=== PATIENT | female | born 1945 | race Caucasian/White ===

== ENCOUNTER 2018-06-03 06:37 | Emergency (ER) | payer MEDICARE ==
[~2018-06-03] VITALS: Ht 167.6 cm; Wt 78.0 kg
[~2018-06-03 06:37] MED LIST: ATEN50TA PO; CITA20TA6 PO; METF500T5 PO; OMEP20CA9 PO
[2018-06-03] MEDS: ACETAMINOPHEN 500 MG TABLET PO ONE (07:13)
--- NOTE | 2018-06-03 07:41 | RAD ---
Left shoulder, 3 views, 06/03/2018: HISTORY: Pain after a fall There is a slightly impacted fracture of the humeral neck with a fracture line extending into the greater tuberosity. No significant displacement is evident. There is no evidence of dislocation. IMPRESSION: Nondisplaced fracture of the proximal left humerus. Electronically signed by: Dougie Bhatia MD (06/03/2018 7:38 AM) [facility]
[2018-06-03] MEDS ORDERED: HYDR-971 PO (07:45)
--- NOTE | 2018-06-03 07:52 | PHYS DOC ---
Past Medical History Past Medical History: Diabetes-Type II, GERD, Hypothyroid, Hypotension, Hepatitis, Other Additional Past Medical Histor: Hep C, Cirrhosis Past Surgical History: Other Additional Past Surgical Histo: left ankle Alcohol Use: None Drug Use: None Adult General Chief Complaint Chief Complaint: MECHANICAL FALL HPI HPI Patient is a 73 year old female presenting with mechanical fall she tripped on a railroad tie on the way to work. she has left shoulder pain. Tetanus is up-to- date no head injury no neck pain no loss of consciousness. Review of Systems Review of Systems pos knee laurent no pelon pain Current Medications Current Medications Current Medications Medications (Trade) Dose Ordered Sig/Justine Start Time Stop Time Status Last Admin Dose Admin Acetaminophen (Tylenol) 1,000 mg 1X ONCE 06/03/18 07:00 06/03/18 07:03 DC 06/03/18 07:13 1,000 MG Allergies Allergies Allergies Coded Allergies Type Severity Reaction Last Updated Verified No Known Drug Allergies 10/31/13 No Physical Exam Physical Exam Constitutional: Well developed, well nourished, no acute distress, non-toxic appearance. [] HENT: Normocephalic, atraumatic, bilateral external ears normal, oropharynx moist, no oral exudates, nose normal. [] Eyes: PERRLA, EOMI, conjunctiva normal, no discharge. [] Neck: Normal range of motion, no tenderness, supple, no stridor. [] Pulmonary: Normal respiratory effort no increased work of breathing no obvious chest wall trauma Abdomen soft and nontender Back: No tenderness, no CVA tenderness. [] Extremities: Limited range of motion and abrasion to the left shoulder distal sensation and motor function and pulse are intact abrasion to the left knee range of motion is full Neurologic: Alert and oriented X 3, normal motor function, normal sensory function, no focal deficits noted. [] Psychologic: Affect normal, judgement normal, mood normal. [] Current Patient Data Vital Signs Vital Signs Date Time Temp Pulse Resp B/P (MAP) Pulse Ox O2 Delivery O2 Flow Rate FiO2 06/03/18 06:41 97.6 94 18 99/51 (67) 94 Room Air 97.6 EKG EKG [] Radiology/Procedures Radiology/Procedures [] Course & Med Decision Making Course & Med Decision Making Pertinent Labs and Imaging studies reviewed. (See chart for details) []Humeral head fracture no dislocation patient is overall well-appearing appears to be an isolated injury she lives alone but she is highly functional she is working she was given a sling and orthopedics follow-up as well as pain medication. She was advised on care of the shoulder work note was given instructions were reviewed and she voiced understanding. Dragon Disclaimer Dragon Disclaimer This electronic medical record was generated, in whole or in part, using a voice recognition dictation system. Departure Departure Impression: Primary Impression: Humeral head fracture Disposition: HOME, SELF-CARE Condition: IMPROVED Referrals: JAY CHAND MD Patient Instructions: Humerus Fracture, Treated with Immobilization Scripts Hydrocodone/Apap 5-325 (NORCO 5-325 TABLET) 1 Each Tablet 1-2 EACH PO PRN Q6HRS PRN for PAIN, #15 as needed for pain Prov: DARLYN OLIVER MD 06/03/18 DARLYN OLIVER MD Jun 03, 2018 07:52
[2018-06-03 08:00] VITALS: BP 102/53
== END 2018-06-03 08:05 | disposition home or self-care (01) ==
LOC: ER 06:37
DX: M25.512 Pain in left shoulder (principal); K21.9 Gastro-esophageal reflux disease without esophagitis; E03.9 Hypothyroidism, unspecified; E11.9 Type 2 diabetes mellitus without complications; W01.0XXA Fall on same level from slipping, tripping and stumbling without subsequent striking against object, initial encounter; Y99.0 Civilian activity done for income or pay; Y92.85 Railroad track as the place of occurrence of the external cause; Y93.01 Activity, walking, marching and hiking
CPT/HCPCS: 73030; 99284

== ENCOUNTER → 2020-03-17 | Outpatient (CLI) | payer MEDICARE ==
[~2020-03-17] MED LIST changes: +HYDR-3164 PO; +METF500T16 PO; -METF500T5 PO; +OMEP20CA16 PO; -OMEP20CA9 PO
--- NOTE | 2020-03-17 10:45 | CARD ---
MR#: [id number] Date of Study: 03/17/2020 Ordering Physician: PHIL NUNEZ, Referring Physician: PHIL NUNEZ, Tech: Gina Huff [facility] APPROVED REPORT EXAM: Two-dimensional and M-mode echocardiogram with Doppler and color Doppler. Other Information Quality : Good INDICATION Supraventricular Tachycardia 2D DIMENSIONS Left Atrium(2D)3.9 (1.6-4.0cm)IVSd1.2 (0.7-1.1cm) Aortic Root(2D)3.1 (2.0-3.7cm)LVDd5.5 (3.9-5.9cm) LVOT Diameter2.2 (1.8-2.4cm)PWd1.2 (0.7-1.1cm) LVDs3.4 (2.5-4.0cm)FS (%) 38.6 % SV99.4 ml Aortic Valve AoV Peak Steve.209.4cm/sAoV VTI50.2cm AO Peak GR.17.5mmHgLVOT Peak Steve.115.5cm/s AO Mean GR.8mmHgAVA (VMAX)2.01cm2 MICHELE (VTI)2.20xb6SX P 1/2 Kbhx378ey Mitral Valve MV E Xagamtvx19.3cm/sMV DECEL LICG129wp MV A Arjtphoo18.6cm/sE/A Ratio0.9 Pulmonary Vein S1 Uwiqwtqa71.7cm/sD2 Ziqphxoe20.6cm/s LEFT VENTRICLE The left ventricle is normal size. There is mild concentric left ventricular hypertrophy. The left ve ntricular systolic function is normal and the ejection fraction is within normal range. The Ejection Fraction is 55-60%. There is normal LV segmental wall motion. Transmitral Doppler flow pattern is Gra de I-abnormal relaxation pattern. RIGHT VENTRICLE The right ventricle is normal size. The right ventricular systolic function is normal. ATRIA The left atrium size is normal. The right atrium size is normal. The interatrial septum is intact wit h no evidence for an atrial septal defect or patent foramen ovale as noted on 2-D or Doppler imaging. AORTIC VALVE The aortic valve is normal in structure and function. Doppler and Color Flow revealed trace aortic re gurgitation. There is no significant aortic valvular stenosis. MITRAL VALVE The mitral valve is calcified but opens well. Mitral annular calcification is mild. There is no evide nce of mitral valve prolapse. There is no mitral valve stenosis. Doppler and Color-flow revealed trac e mitral regurgitation. TRICUSPID VALVE The tricuspid valve is normal in structure and function. Doppler and Color Flow revealed no tricuspid valve regurgitation noted. There is no tricuspid valve stenosis. PULMONIC VALVE The pulmonary valve is normal in structure and function. Doppler and Color Flow revealed no pulmonic valvular regurgitation. There is no pulmonic valvular stenosis. GREAT VESSELS The aortic root is normal in size. The ascending aorta is normal in size. The IVC is normal in size a nd collapses >50% with inspiration. PERICARDIAL EFFUSION There is no evidence of significant pericardial effusion. Critical Notification Critical Value: No <Conclusion> The left ventricle is normal size. The left ventricular systolic function is normal and the ejection fraction is within normal range. The Ejection Fraction is 55-60%. There is mild concentric left ventricular hypertrophy. Doppler and Color Flow revealed trace aortic regurgitation. There is no significant aortic valvular stenosis. Doppler and Color-flow revealed trace mitral regurgitation. Doppler and Color Flow revealed no tricuspid valve regurgitation noted. Signed by : Alden Pond MD Electronically Approved : 03/17/2020 10:45:12
== END | disposition home or self-care (01) ==
LOC: ECHO 09:48
PROVIDERS: ATTEND Internal Medicine Cardiovascular Disease
DX: I05.8 Other rheumatic mitral valve diseases (principal); I47.1 Supraventricular tachycardia
CPT/HCPCS: 93306

== ENCOUNTER → 2020-03-22 | Outpatient (CLI) | payer MEDICARE ==
[~2020-03-22] MED LIST changes: +ASCO500C PO; +ATOR10TA60 PO; +CALC1CAP7 PO; +GABA300C18 PO; +GABA600T7 PO; +HYDR12.575 PO; +LEVO50TA5 PO; +MAGN250T10 PO; +METF850T8 PO; +VENTOLIN HFA18 GM INH; +[UNRECOGNIZED DRUG - REMARK]; +vitamin d
== END | disposition home or self-care (01) ==
LOC: LAB 12:30
PROVIDERS: ATTEND Internal Medicine Gastroenterology
DX: Z11.59 Encounter for screening for other viral diseases (principal)
CPT/HCPCS: U0003-CS

== ENCOUNTER → 2020-03-27 | Day surgery (SDC) | payer MEDICARE ==
[~2020-03-27] MED LIST changes: +IV RINGERS,LACTATED 1000ML 1,000 ML IV SCH; +PROPOFOL 10 MG/ML (20ML) VIAL. IV ONE
[2020-03-27 10:08] VITALS: BP 101/40
--- NOTE | 2020-03-27 10:11 | PREOP HP ---
DATE OF SERVICE: 03/27/2020 DATE OF PROCEDURE: 03/27/2020. REQUESTING PHYSICIAN: Raleigh Roman DO PRIMARY CARE PHYSICIAN: Raleigh Roman DO REASON FOR PROCEDURE: Esophageal variceal screening and colorectal cancer screening. HISTORY OF PRESENT ILLNESS: This is a 74-year-old female who presents for esophageal variceal screening and colorectal cancer screening. She has a positive Cologuard. ALLERGIES: MORPHINE. MEDICATIONS: MAR reviewed. PAST MEDICAL HISTORY: 1. Hepatitis C. 2. Liver disease. FAMILY MEDICAL HISTORY: No colorectal cancer. REVIEW OF SYSTEMS: A 13-point review of systems was done and is positive as per HPI and otherwise negative. PHYSICAL EXAMINATION: VITAL SIGNS: She is afebrile. Her vital signs are stable. GENERAL: She is a well-developed, well-nourished female, in no apparent distress. HEENT: Oropharynx is clear. CARDIOVASCULAR: S1, S2. LUNGS: Clear. ABDOMEN: Normoactive bowel sounds. Soft, nontender, nondistended. EXTREMITIES: No edema. NEUROLOGIC: Awake, alert and oriented x 3. ASSESSMENT AND PLAN: 1. Colorectal cancer screening. 2. Esophageal variceal screening. PLAN: We will proceed with upper endoscopy and colonoscopy. The risks and benefits including bleeding, perforation, non-diagnosis and sedation were explained and she has agreed to proceed. RASHAWN GIBSON MD DR: JOSIAS/renard JOB#: [id number] / [id number]
--- NOTE | 2020-03-28 15:07 | PATHOLOGY ---
[facility] Accession Number: [id number] . 01 Material submitted: . PART A: small bowel - SMALL BOWEL BIOPSY PART B: stomach - BIOPSY GASTRIC ANTRUM AND BODY. Modifiers: body PART C: colon - BIOPSY POLYPS TRANVERSE COLON POLYPS. Modifiers: transverse PART D: colon - BIOPSY DESCENDING COLON POLYP. Modifiers: descending PART E: colon - BIOPSY SIGMOID POLYP. Modifiers: sigmoid . 01 Clinical history: . Esophageal varices, CRC . 02 Diagnosis: A. Small bowel biopsies: - No significant pathologic abnormalities. . B. Gastric biopsies, gastric body and gastric antrum: - Chronic gastritis, mild. . C. Colon biopsies, transverse colon polyps: - Tubular adenomas. . D. Colon biopsies, descending colon polyps: - Tubular adenomas. . E. Colon biopsies, sigmoid colon polyp: - Tubular adenoma. (JPM:baudilio 03/28/2020) [facility] 03/28/2020 0911 Local . 02 Comment: Sections of the small bowel biopsy reveal segments of duodenal and small intestine mucosa. Where best oriented, the mucosal villi show no sprue-like changes or significant inflammatory changes. . Sections of the gastric biopsy reveal segments of gastric body and gastric antral mucosa. The gastric body mucosa shows superficial congestion and mild chronic inflammation. The gastric antral mucosa shows congestion and mild chronic inflammation. A properly controlled immunoperoxidase stain for Helicobacter is negative for Helicobacter organisms. . Sections of the transverse colon biopsy reveal two tubular adenomas showing no high-grade dysplasia or evidence of malignancy. . Sections of the descending colon biopsy reveal two tubular adenomas showing no high-grade dysplasia or evidence of malignancy. . Sections of the sigmoid colon biopsy reveal a tubular adenoma showing no high-grade dysplasia or evidence of malignancy. (JPM:baudilio 03/28/2020) . Special stain performed: Immunoperoxidase for Helicobacter on B1. . 02 Electronically signed: . Bautista Perez MD, Pathologist NPI- [id number] . 01 Gross description: . A. The specimen is received in formalin, labeled "Bettina Hector, small bowel biopsy". Received are four segments of pale lay soft tissue ranging in size from 0.3 to 0.4 cm in maximum dimensions. The specimen is submitted entirely in cassette A1. . B. The specimen is received in formalin, labeled "Bettina Hector, biopsy gastric antrum and body". Received are five segments of pale lay soft tissue ranging in size from 0.2 to 0.4 cm in maximum dimensions. The specimen is submitted entirely in cassette B1. . C. The specimen is received in formalin, labeled "Bettina Hector, biopsy polyps transverse colon polyps". Received are two segments of pale lay soft tissue ranging in size from 0.3 to 0.4 cm in maximum dimensions. The specimen is submitted entirely in cassette C1. . D. The specimen is received in formalin, labeled "Bettina Hector, biopsy descending colon polyp". Received is a segment of pale lay soft tissue measuring 0.5 cm in maximum dimensions. The specimen is submitted entirely in cassette D1. . E. The specimen is received in formalin, labeled "Bettina Hector, biopsy sigmoid polyp". Received are two segments of pale lay soft tissue ranging in size from 0.2 to 0.5 cm in maximum dimensions. The specimen is submitted entirely in cassette E1. (CAA; 03/27/2020) QA/QA 03/27/2020 1718 Local . 02 Pathologist provided ICD-10: K29.50, D12.3, D12.4, D12.5 . 02 CPT . 771057, 689986, 883204, [id number], 181675, [id number] Specimen Comment: A courtesy copy of this report has been sent to [phone], [phone] Specimen Comment: [id number] Specimen Comment: Report sent to / DR DIAZ Specimen Comment: A duplicate report has been generated due to demographic updates. Performed at: 01 [facility] [address], [place], [place] [id number] MD Дмитрий Sullivan MD Phone: [phone] Performed at: 02 [facility] [address] [place], [place] [id number] MD Bautista Perez MD Phone: [phone]
== END ==
LOC: ENDOS 07:56
PROVIDERS: ATTEND Internal Medicine Gastroenterology
DX: R19.5 Other fecal abnormalities (principal); D12.3 Benign neoplasm of transverse colon; D12.4 Benign neoplasm of descending colon; K29.50 Unspecified chronic gastritis without bleeding; K57.30 Diverticulosis of large intestine without perforation or abscess without bleeding; K64.0 First degree hemorrhoids; E11.9 Type 2 diabetes mellitus without complications; K21.9 Gastro-esophageal reflux disease without esophagitis; F15.90 Other stimulant use, unspecified, uncomplicated; Z88.6 Allergy status to analgesic agent; Z87.39 Personal history of other diseases of the musculoskeletal system and connective tissue; Z86.010 Personal history of colon polyps; Z85.828 Personal history of other malignant neoplasm of skin; Z86.19 Personal history of other infectious and parasitic diseases; Z72.89 Other problems related to lifestyle; Z79.84 Long term (current) use of oral hypoglycemic drugs
CPT/HCPCS: 43239; 45380; 88305; 88342; J2704

== ENCOUNTER 2020-07-21 23:46 | Emergency (ER) | payer MEDICARE ==
[~2020-07-21] VITALS: Ht 167.6 cm; Wt 77.0 kg
[~2020-07-21 23:46] MED LIST changes: -IV RINGERS,LACTATED 1000ML 1,000 ML IV SCH; -PROPOFOL 10 MG/ML (20ML) VIAL. IV ONE
[2020-07-22 02:38] VITALS: BP 135/40
--- NOTE | 2020-07-22 04:50 | RAD ---
EXAM: FOREARM LEFT 07/22/2020 4:00 AM CLINICAL INDICATION:Status post fall, pain COMPARISON:None TECHNIQUE:2 views of the left forearm FINDINGS:The bones are diffusely demineralized. There is no acute fracture. Alignment is normal. There is mild first CMC joint space narrowing and subchondral sclerosis. No soft tissue abnormality. IMPRESSION:No acute osseous abnormality. Electronically signed by: Chikis Stock MD (07/22/2020 4:47 AM) [id number]
--- NOTE | 2020-07-22 05:05 | RAD ---
EXAM: CT head and cervical spine without contrast INDICATION: Fall COMPARISON: None TECHNIQUE: Axial CT imaging through the head and cervical spine without intravenous contrast. Coronal and sagittal reformats of the cervical spine were obtained One or more of the following individualized dose reduction techniques were utilized for this examination: 1. Automated exposure control 2. Adjustment of the mA and/or kV according to patient size 3. Use of iterative reconstruction technique. FINDINGS: CT head: The ventricles and sulci are moderately enlarged, reflecting age-related volume loss. Damon-white matter differentiation is maintained. There is no intracranial hemorrhage, acute infarct, or mass lesion. Basal cisterns are clear. The skull and scalp are intact. Paranasal sinuses and mastoid air cells are clear. Globes and orbits are intact.. CT cervical spine: No acute fracture. There is 3 mm anterolisthesis of C4 on C5. Partial fusion across the disc space at C2-C3. There is a Schmorl's node in the superior endplate of C7. Mild disc space narrowing, greatest at C5-C6 and C6-C7. There is severe right facet arthrosis C3-C4 and C4-C5 with mild to moderate right foraminal narrowing. No bony canal narrowing. Prevertebral soft tissues normal. IMPRESSION: 1. No acute intracranial abnormality. 2. No acute osseous abnormality of the cervical spine. Electronically signed by: Chikis Stock MD (07/22/2020 5:02 AM) [id number]
--- NOTE | 2020-07-22 05:11 | PHYS DOC ---
Past Medical History Past Medical History: Diabetes-Type II, GERD, Hypothyroid, Hypotension, H epatitis, Other Additional Past Medical Histor: Hep C, Cirrhosis, OSTEOPOROSIS Past Surgical History: Other Additional Past Surgical Histo: left ankle, SKIN CANCER ROMOVAL Smoking Status: Never Smoker Alcohol Use: None Drug Use: None General Adult EDM: Chief Complaint: UPPER EXTREMITY PAIN HPI: HPI: 75-year-old female with multiple comorbidities, presents the ED with complaints of left distal forearm and wrist pain that occurred after an accidental fall at 11:30 PM. Patient states she was at a [employer] and was dancing with an individual who had sweaty arms-she went to grab his hand and slipped and landed on her left forearm, hit her head and c/o a bump to the top of her head. Denies any loss of consciousness. States she is not drinking any alcohol or under influence of any drugs, is not on any anticoagulants. Is right-hand dominant. No prior history of head or LUE injury/trauma/ Review of Systems: Review of Systems: Constitutional: Denies fever or chills. [] Eyes: Denies change in visual acuity or blurry vision HENT: Denies nasal congestion or sore throat. [] Respiratory: Denies cough or shortness of breath. [] Cardiovascular: Denies chest pain or edema. [] GI: Denies abdominal pain, nausea, vomiting, bloody stools or diarrhea. [] : Denies dysuria. [] Or hematuria Musculoskeletal: Denies back pain or saddle anesthesia Integument: Denies rash. [] Neurologic: Denies headache, focal weakness or sensory changes. [] No midline neck pain Endocrine: Denies polyuria or polydipsia. [] Lymphatic: Denies swollen glands. [] Psychiatric: Denies depression or anxiety. [] Heart Score: Risk Factors: Risk Factors: DM, Current or recent (<one month) smoker, HTN, HLP, family history of CAD, obesity. Risk Scores: Score 0 - 3: 2.5% MACE over next 6 weeks - Discharge Home Score 4 - 6: 20.3% MACE over next 6 weeks - Admit for Clinical Observation Score 7 - 10: 72.7% MACE over next 6 weeks - Early Invasive Strategies Allergies: Allergies: Allergies Coded Allergies Type Severity Reaction Last Updated Verified morphine Allergy Intermediate 6/22/20 Yes Physical Exam: PE: Constitutional: Well developed, well nourished, no acute distress, non-toxic appearance. [] HENT: Normocephalic, atraumatic, bilateral external ears normal, oropharynx moist, no oral exudates, nose normal. [] Cannot appreciate any hematoma Eyes: PERRLA, EOMI, conjunctiva normal, no discharge. [] Neck: Normal range of motion, no tenderness, supple, no stridor. [] Cardiovascular:Heart rate regular rhythm, no murmur [] Lungs & Thorax: Bilateral breath sounds clear to auscultation [] Abdomen: soft, no tenderness, no masses, no pulsatile masses. [] Skin: Warm, dry, no erythema, no rash. [] Back: No tenderness, no CVA tenderness. [] Extremities: distal left ulnar ttp, pain over ventral aspect of L wrist with FROM, no pain over left elbow/shoulder/phalanges, no cyanosis, no clubbing, ROM intact, possible mild soft tissue edema left distal wrist, no ttp over scaphoid or lunate Neurologic: Alert and oriented X 3, normal motor function, normal sensory function, no focal deficits noted. [] Steady gait Psychologic: Affect normal, judgement normal, mood normal. [] Current Patient Data: Vital Signs: Vital Signs Date Time Temp Pulse Resp B/P (MAP) Pulse Ox O2 Delivery O2 Flow Rate FiO2 07/22/20 02:38 98.4 83 16 135/40 (71) 96 Room Air 98.4 EKG: EKG: [] Radiology/Procedures: Radiology/Procedures: IMAGING REPORT Signed PATIENT: ZION AVILA MACCOUNT: [id number] : 1945 LOCATION: ER AGE: 75 SEX: F EXAM STATUS: REG ER ORD. PHYSICIAN: JOCELYN DYE DO REASON: fall PROCEDURE: CT HEAD AND CERVICAL SPINE WO EXAM: CT head and cervical spine without contrast INDICATION: Fall COMPARISON: None TECHNIQUE: Axial CT imaging through the head and cervical spine without intravenous contrast. Coronal and sagittal reformats of the cervical spine were obtained One or more of the following individualized dose reduction techniques were utilized for this examination: 1. Automated exposure control 2. Adjustment of the mA and/or kV according to patient size 3. Use of iterative reconstruction technique. FINDINGS: CT head: The ventricles and sulci are moderately enlarged, reflecting age-related volume loss. Damon-white matter differentiation is maintained. There is no intracranial hemorrhage, acute infarct, or mass lesion. Basal cisterns are clear. The skull and scalp are intact. Paranasal sinuses and mastoid air cells are clear. Globes and orbits are intact.. CT cervical spine: No acute fracture. There is 3 mm anterolisthesis of C4 on C5. Partial fusion across the disc space at C2-C3. There is a Schmorl's node in the superior endplate of C7. Mild disc space narrowing, greatest at C5-C6 and C6-C7. There is severe right facet arthrosis C3-C4 and C4-C5 with mild to moderate right foraminal narrowing. No bony canal narrowing. Prevertebral soft tissues normal. IMPRESSION: 1. No acute intracranial abnormality. 2. No acute osseous abnormality of the cervical spine. Electronically signed by: Chikis Stock MD (07/22/2020 5:02 AM) [id number] DICTATED and SIGNED BY: CHIKIS STOCK MD DATE: 07/22/20 1273 IMAGING REPORT Signed PATIENT: ZION AVILA MACCOUNT: [id number] : 1945 LOCATION: ER AGE: 75 SEX: F EXAM STATUS: REG ER ORD. PHYSICIAN: JOCELYN DYE DO REASON: s/p fall, with pain PROCEDURE: FOREARM LEFT EXAM: FOREARM LEFT 07/22/2020 4:00 AM CLINICAL INDICATION:Status post fall, pain COMPARISON:None TECHNIQUE:2 views of the left forearm FINDINGS:The bones are diffusely demineralized. There is no acute fracture. Alignment is normal. There is mild first CMC joint space narrowing and subchondral sclerosis. No soft tissue abnormality. IMPRESSION:No acute osseous abnormality. Electronically signed by: Chikis Stock MD (07/22/2020 4:47 AM) [id number] DICTATED and SIGNED BY: CHIKIS STOCK MD DATE: 07/22/20 2029 Course & Med Decision Making: Course & Med Decision Making Pertinent Labs and Imaging studies reviewed. (See chart for details) Nexus C-spine criteria are negative: There is no post midline tenderness, the patient is not intoxicated, there is a normal level of alertness, there are no focal neurologic deficits and there are no distracting injuries. Concern for accidental fall with left distal forearm tenderness, very mild swelling on exam, with normal range of motion and no severe pain at proportion. Not appreciate any extracranial hematoma. I encouraged RICE instructions and patient was given a wrist splint, may need repeat imaging in 1 to 2 weeks if pain persists. Patient was given very strict ED return precautions for neurologic deficits or compartment syndrome sxs. Encouraged urgent outpatient follow-up with PMD and Ortho. Life-threatening processes were considered but are low suspicion at this time, given history and physical exam. Pt was educated on all prescription medications and adverse effects. All patient's questions were answered and pt was stable at time of discharge. Life/limb-threatening differential includes but is not limited to, fracture, dislocation, laceration, osteomyelitis, compartment syndrome, neurovascular injury or deficit, infection (abscess, cellulitis, septic arthritis), head/neck trauma, tendon or ligament injury. I spoken with the patient and her caregivers. I explained the patient's condition, diagnoses and treatment plan based on the information available to me at this time. I have answered the patient and her caregiver's questions and ad dressed any concerns. The patient and her caregivers have a good understanding of patient's diagnosis, condition and treatment plan as can be expected at this point. Vital signs have been stable. Patient's condition is stable and appropriate for discharge from the emergency department. Patient will pursue further outpatient evaluation with primary care physician or other designated or consulting physician as outlined in the discharge instructions. The patient and/or caregivers are agreeable to this plan of care and follow-up instructions have been explained in detail. The patient and/or caregivers have received these instructions in written form and have expressed an understanding of the discharge instructions. The patient and/or caregivers are aware that any significant change of condition or worsening of symptoms should prompt immediate return to this or the closest emergency department or call to 911. Leonila Disclaimer: Leonila Disclaimer: This electronic medical record was generated, in whole or in part, using a voice recognition dictation system. Departure Departure Impression: Primary Impression: Fall Additional Impression: Left forearm pain Disposition: 01 DC HOME SELF CARE/HOMELESS Condition: STABLE Referrals: AGUSTIN DIAZ DO (PCP) in 3-5 days Patient Instructions: Contusion, RICE - Routine Care for Injuries Additional Instructions: FOLLOW UP WITH ORTHOPEDICS: Orthopaedic Sports Medicine Orthopaedic Surgery [facility] Address: [address] [facility] [address] [address] EMERGENCY DEPARTMENT GENERAL DISCHARGE INSTRUCTIONS Thank you for coming to [facility] Emergency Department (ED) today and trusting us with you care. We trust that you had a positive experience in our Emergency Department. If you wish to speak to the department management, you may call the Director at [phone]. YOUR FOLLOW UP INSTRUCTIONS ARE FOLLOWS: 1. Do you have a private Doctor? If you do not have a private doctor, please ask for a resource list of physicians or clinics that may be able to assist you with follow up care. 2. The Emergency Physicain has interpreted your x-rays. The X-Ray specialist will also review them. If there is a change in the findings, you will be notified in 48 hours when at all possible. 3. A lab test or culture has been done, your results will be reviewed and you will be notified if you need a change in treatment. ADDITIONAL INSTRUCTIONS AND INFORMATION: 1. Your care today has been supervised by a physician who is specially trained in emergency care. Many problems require more than one evaluation for a complete diagnosis and treatment. We recommend that you schedule your follow up appointment as recommended to ensure complete treatment of you illness or injury. If you are unable to obtain follow up care and continue to have a problem, or if your condition worsens, we recommend that you return to the ED. 2. We are not able to safely determine your condition over the phone nor are we able to give sound medical advice over the phone. For these safety reasons, if you call for medical advice we will ask you to come to the ED for further evaluation. 3. If you have any questions regarding these discharge instructions please call the ED at [phone]. SAFETY INFORMATION: In the interest of safety, wellness, and injury prevention; we encourage you to wear your sealbelt, if you smoke; quite smoking, and we encourage family to use a protective helmet for bicycling and other sporting events that present an increased risk for head injury. IF YOUR SYMPTOMS WORSEN OR NEW SYMPTOMS DEVELOP, OR YOU HAVE CONCERNS ABOUT YOUR CONDITION; OR IF YOUR CONDITION WORSENS WHILE YOU ARE WAITING FOR YOUR FOLLOW UP APPOINTMENT; EITHER CONTACT YOUR PRIMARY CARE DOCTOR, THE PHYSICIAN WHOSE NAME AND NUMBER YOU WERE GIVEN, OR RETURN TO THE ED IMMEDIATELY. JOCELYN DIALLO DO Jul 22, 2020 05:11
== END 2020-07-22 05:33 | disposition home or self-care (01) ==
LOC: ER 23:46
DX: M79.632 Pain in left forearm (principal); M25.532 Pain in left wrist; G89.11 Acute pain due to trauma; E11.9 Type 2 diabetes mellitus without complications; K21.9 Gastro-esophageal reflux disease without esophagitis; R51.9 Headache, unspecified; M54.2 Cervicalgia; E03.9 Hypothyroidism, unspecified; W01.0XXA Fall on same level from slipping, tripping and stumbling without subsequent striking against object, initial encounter; Y93.41 Activity, dancing; Y92.89 Other specified places as the place of occurrence of the external cause; Y99.8 Other external cause status
CPT/HCPCS: 29125; 70450; 72125; 73090; 99285

== ENCOUNTER → 2020-11-20 | Outpatient (CLI) | payer MEDICARE ==
[2020-11-20 08:43] LABS: DIRECT BILIRUBIN 0.9 mg/dL (0.0-0.2); TOTAL BILIRUBIN 2.2 mg/dL (0.2-1.0)
[2020-11-22 12:58] LABS: HCV ULTRA QUANT PCR HCV Not Detected IU/mL (.)
== END ==
LOC: LAB 07:42
PROVIDERS: ATTEND Physician Assistant
DX: R17 Unspecified jaundice (principal); Z86.19 Personal history of other infectious and parasitic diseases
CPT/HCPCS: 36415; 82105; 82247; 82248; 87522

== ENCOUNTER → 2020-11-20 | Outpatient (CLI) | payer MEDICARE ==
--- NOTE | 2020-11-20 09:14 | RAD ---
US ABDOMEN COMPLETE: 11/20/2020 8:08 AM Indication: 75 years old Female. Elevated bilirubin, cirrhosis. Comparison: None. TECHNIQUE: Sonographic evaluation of the abdomen is performed utilizing grayscale and color Doppler. FINDINGS: Liver: There is diffuse increased echogenicity of the hepatic parenchyma compatible with diffuse hepa tocellular disease, most commonly due to steatosis. This decreases the sensitivity of ultrasound for the detection of focal hepatic lesions. Nodular contour of the hepatic parenchyma may reflect underly ing cirrhosis. There is hepatopedal flow within the portal venous system. Right hepatic lobe measures 15.8 cm. Main portal vein is dilated to 1.5 cm. Biliary system: CBD measures 4 mm. There is no intrahepatic or extrahepatic biliary dilatation. Gallbladder: No stones, wall thickening or pericholecystic fluid. . Sonographic Walsh sign: Negative Pancreas: Visualized head and uncinate process are unremarkable. Body and tail are not visualized. Spleen: 17.4 cm. Splenic varices are identified. Right kidney: 12.3 x 5.0 x 5.2 cm. No hydronephrosis. Normal echotexture without focal mass or renal calculus. Left kidney: 12.2 x 4.2 x 5.0 cm. No hydronephrosis. Normal echotexture without focal mass or renal c alculus. Abdominal aorta and IVC: Visualized portions unremarkable. Free fluid:None. IMPRESSION: Cirrhosis with stigmata of portal hypertension. Splenomegaly with splenic varices. Hepatic pedal flow is identified within the portal venous system. No significant free fluid is identified. Findings Hernández ited evaluation for underlying hepatic masses. Further characterization with abdominal MRI with and w ithout contrast is recommended. Electronically signed by: Eleni Thomas MD (11/20/2020 9:11 AM) [id number]
== END ==
LOC: US 07:40
PROVIDERS: ATTEND Internal Medicine Gastroenterology
DX: K76.89 Other specified diseases of liver (principal); K74.60 Unspecified cirrhosis of liver; R16.1 Splenomegaly, not elsewhere classified; I86.8 Varicose veins of other specified sites
CPT/HCPCS: 76700

== ENCOUNTER → 2021-03-08 | Day surgery (SDC) | payer MEDICARE ==
[~2021-03-08] VITALS: Ht 167.6 cm; Wt 74.0 kg
[~2021-03-08] MED LIST changes: +CHOL5000 PO; +IV RINGERS,LACTATED 1000ML 1,000 ML IV SCH; +PROPOFOL 10 MG/ML (20ML) VIAL. IV ONE
--- NOTE | 2021-03-08 09:47 | PREOP HP ---
DATE OF SERVICE: 03/08/2021 REQUESTING PHYSICIAN: Dr. Romo. PRIMARY CARE PHYSICIAN: Dr. Romo. REASON FOR PROCEDURE: Screening for esophageal varices. HISTORY OF PRESENT ILLNESS: This is a 75-year-old female who presents for screening for esophageal varices. She has a history of hepatitis C, status post ribavirin and interferon with cirrhosis. PAST MEDICAL HISTORY: Cirrhosis, hepatitis C. MEDICATIONS: MAR reviewed. PHYSICAL EXAMINATION: VITAL SIGNS: She is afebrile and her vital signs are stable. GENERAL: She is a well-developed, well-nourished female in no apparent distress. HEENT: Oropharynx clear. CARDIOVASCULAR: S1, S2. LUNGS: Clear. ABDOMEN: Normoactive bowel sounds, soft, nontender, nondistended. EXTREMITIES: No edema. NEUROLOGIC: Awake, alert and oriented x 3. REVIEW OF SYSTEMS: A 10-point review of systems was done. ASSESSMENT: Hepatitis C with cirrhosis. PLAN: She will undergo upper endoscopy for screening for esophageal varices. DEYA DR: Nga TID: [id number]
[2021-03-08 09:48] VITALS: BP 107/53
== END | disposition home or self-care (01) ==
LOC: ENDOS 06:46
PROVIDERS: ATTEND Internal Medicine Gastroenterology
DX: I85.00 Esophageal varices without bleeding (principal); K31.89 Other diseases of stomach and duodenum; K21.9 Gastro-esophageal reflux disease without esophagitis; M19.90 Unspecified osteoarthritis, unspecified site; E11.9 Type 2 diabetes mellitus without complications; Z85.828 Personal history of other malignant neoplasm of skin; Z87.891 Personal history of nicotine dependence; Z79.84 Long term (current) use of oral hypoglycemic drugs; Z79.899 Other long term (current) drug therapy; Z88.8 Allergy status to other drugs, medicaments and biological substances; Z88.6 Allergy status to analgesic agent
CPT/HCPCS: 43239; J2704; 43235

== ENCOUNTER → 2021-03-08 | Outpatient (CLI) | payer MEDICARE ==
[~2021-03-08] MED LIST changes: -IV RINGERS,LACTATED 1000ML 1,000 ML IV SCH; -PROPOFOL 10 MG/ML (20ML) VIAL. IV ONE
[2021-03-08 07:32] LABS: BASO % 0 % (0-3); EOS # 0.1 x10^3/uL (0.0-0.7); EOS % 4 % (0-3); HEMATOCRIT 35.9 % (36.0-47.0); HEMOGLOBIN 12.8 g/dL (12.0-15.5); LYMPH # 0.8 x10^3/uL (1.0-4.8); LYMPH % 36 % (24-48); MEAN CORPUSCULAR HEMOGLOBIN 33 pg (25-35); MEAN CORPUSCULAR HGB CONC 36 g/dL (31-37); MEAN CORPUSCULAR VOLUME 92 fL (79-100); MONO # 0.3 x10^3/uL (0.0-1.1); MONO % 12 % (0-9); NEUT # 1.1 x10^3/uL (1.8-7.7); NEUT % 48 % (31-73); PLATELET COUNT 48 x10^3/uL (140-400); RED BLOOD COUNT 3.89 x10^6/uL (3.50-5.40); RED CELL DISTRIBUTION WIDTH 14.6 % (11.5-14.5); WHITE BLOOD COUNT 2.3 x10^3/uL (4.0-11.0)
[2021-03-08 07:35] LABS: PROTHROMBIN TIME PATIENT 17.7 SEC (11.7-14.0)
[2021-03-08 07:48] LABS: ALBUMIN 3.4 g/dL (3.4-5.0); DIRECT BILIRUBIN 0.8 mg/dL (0.0-0.2); TOTAL BILIRUBIN 2.5 mg/dL (0.2-1.0); TOTAL PROTEIN 6.2 g/dL (6.4-8.2)
--- NOTE | 2021-03-08 08:21 | RAD ---
EXAMINATION: US ABDOMEN COMPLETE INDICATION: 75 years, Female, liver cirrhosis.. COMPARISON: 11/20/2020 TECHNIQUE: Grayscale, color Doppler and limited spectral Doppler images of the abdomen were obtained. FINDINGS: LIVER: SIZE (LENGTH): 16.3 cm. ECHOGENICITY: Increased PARENCHYMA: Heterogeneous echotexture with mild surface nodularity. No discrete focal lesion. INTRAHEPATIC BILE DUCTS: Nondilated. PORTAL VEIN: Patent with normal hepatopedal flow. PSV: 13.7 cm/second GALLBLADDER: GALLBLADDER WALL THICKNESS: 0.1 cm MORPHOLOGY: Normal morphology. No wall hyperemia or pericholecystic free fluid. LUMEN: Normal. COMMON BILE DUCT DIAMETER: 0.2 cm RIGHT KIDNEY: MEASURES: 9.5 x 5.7 x 3.4 cm. MORPHOLOGY/PARENCHYMA: Normal corticomedullary differentiation with no shadowing calculus or discrete masses. COLLECTING SYSTEM: No hydronephrosis. LEFT KIDNEY: MEASURES: 11.3 x 3.6 x 4.6 cm. MORPHOLOGY/PARENCHYMA: Normal corticomedullary differentiation with no shadowing calculus or discrete masses. COLLECTING SYSTEM: No hydronephrosis. SPLEEN: SIZE (LENGTH): 18.5 x 18.6 x 6.8 cm. PARENCHYMA: Multiple varices at the splenic hilum. Calcified granulomas in the spleen. PANCREAS: VISUALIZED PORTIONS: Body APPEARANCE: Within normal limits. OTHER: RETROPERITONEUM, INFERIOR VENA CAVA: Normal caliber. AORTA: Normal caliber measures up to 1.6 cm FLUID:No free fluid. IMPRESSION: 1. Cirrhotic morphology of the liver on a background of steatosis. Stigmata of portal hypertension in cludes low portal vein velocity, splenomegaly and left upper abdominal varices. 2. No discrete suspicious focal hepatic lesion. Electronically signed by: Mari Lynn MD (03/08/2021 8:19 AM) [id number]
== END ==
LOC: US 06:26
PROVIDERS: ATTEND Internal Medicine Gastroenterology
DX: K76.6 Portal hypertension (principal); K74.60 Unspecified cirrhosis of liver; R16.1 Splenomegaly, not elsewhere classified
CPT/HCPCS: 36415; 76700; 80076; 85025; 85610

== ENCOUNTER → 2021-03-16 | Outpatient (CLI) | payer MEDICARE ==
[2021-03-08 09:48] VITALS: BP 107/53
--- NOTE | 2021-03-16 16:36 | CARD ---
MR#: [id number] Date of Study: 03/16/2021 Ordering Physician: DAVID NUNEZ, Referring Physician: DAVID NUNEZ, Tech: Bettina Ortiz [facility] APPROVED REPORT EXAM: Two-dimensional and M-mode echocardiogram with Doppler and color Doppler. Other Information Quality : AverageHR: 62bpm Rhythm : NSR INDICATION Hypertension/HCVD RISK FACTORS Hypertension Obesity 2D DIMENSIONS RVDd3.8 (2.9-3.5cm)Left Atrium(2D)4.3 (1.6-4.0cm) IVSd1.4 (0.7-1.1cm)Aortic Root(2D)3.6 (2.0-3.7cm) LVDd4.2 (3.9-5.9cm)LVOT Diameter2.1 (1.8-2.4cm) PWd1.3 (0.7-1.1cm)LVDs2.7 (2.5-4.0cm) FS (%) 36.7 %SV52.8 ml LVEF(%)66.9 (>50%) Aortic Valve AoV Peak Steve.216.5cm/sAoV VTI46.8cm AO Peak GR.18.7mmHgLVOT Peak Steve.120.2cm/s AO Mean GR.8mmHgAVA (VMAX)1.91cm2 Mitral Valve MV E Ikirljoh64.6cm/sMV DECEL JTYZ435vl MV A Jcutqrgg960.4cm/sE/A Ratio0.8 Pulmonary Valve PV Peak Bbttdgiu43.2cm/s Tricuspid Valve TR P. Lohbvzby953cu/sTR Peak Gr.23mmHg LEFT VENTRICLE The left ventricle is normal size. There is mild concentric left ventricular hypertrophy. The left ve ntricular systolic function is normal and the ejection fraction is within normal range. Estimated eje ction fraction 60%. There is normal LV segmental wall motion. Transmitral Doppler flow pattern is Gra de I-abnormal relaxation pattern. RIGHT VENTRICLE The right ventricle is normal size. There is normal right ventricular wall thickness. The right ventr icular systolic function is normal. ATRIA The left atrium size is normal. The right atrium size is normal. The interatrial septum is intact wit h no evidence for an atrial septal defect or patent foramen ovale as noted on 2-D or Doppler imaging. AORTIC VALVE The aortic valve is moderately thickened with restricted leaflet motion. Doppler and Color Flow revea led trace to mild aortic regurgitation. There is no aortic valvular vegetation. MITRAL VALVE The mitral valve is normal in structure and function. There is no evidence of mitral valve prolapse. There is no mitral valve stenosis. Doppler and Color-flow revealed mild mitral regurgitation. TRICUSPID VALVE The tricuspid valve is normal in structure and function. Doppler and Color Flow revealed mild tricusp id regurgitation. Estimated PAP 25 mmHg. There is no tricuspid valve stenosis. PULMONIC VALVE Doppler and Color Flow revealed trace pulmonic valvular regurgitation. There is no pulmonic valvular stenosis. GREAT VESSELS The aortic root is normal in size. The ascending aorta is normal in size. The IVC is normal in size a nd collapses >50% with inspiration. PERICARDIAL EFFUSION There is no evidence of significant pericardial effusion. Critical Notification Critical Value: No <Conclusion> The left ventricular systolic function is normal and the ejection fraction is within normal range. E stimated ejection fraction 60%. There is normal LV segmental wall motion. Doppler and Color Flow revealed trace to mild aortic regurgitation. Signed by : David Nunez, Electronically Approved : 03/16/2021 16:35:40
--- NOTE | 2021-03-16 16:42 | RAD ---
MR#: [id number] Date of Study: 03/16/2021 Ordering Physician: PHIL NUNEZ, Referring Physician: PHIL NUNEZ, Tech: Marky Barajas MBA, RDMS, RVT, RDCS, RTR APPROVED REPORT Patient Location: OUT-PATIENT Laterality:Bilateral Indications Bruit Doppler Spectral Velocity Analysis Right Left pCCA 86/13 cm/spCCA 116/27 cm/s mCCA 86/17 cm/smCCA 110/19 cm/s dCCA 86/16 cm/sdCCA 100/22 cm/s Bulb 68/12 cm/sBulb 90/19 cm/s ECA 79/ cm/sECA 100/ cm/s pICA 87/26 cm/spICA 64/18 cm/s Eleni 105/28 cm/smICA 101/29 cm/s dICA 104/28 cm/sdICA 94/25 cm/s Vert. 52/ cm/sVert. 86/ cm/s Subcl. 117/ cm/sSubcl. 121/ cm/s ICA/CCA 1.22ICA/CCA 0.87 Findings Grayscale images of the bilateral carotid vessels demonstrate mild diffuse intimal hyperplasia. Base d on spectral waveforms and color Doppler overall 0 to less than 50% stenosis. Normal ICA to CCA rat ios bilaterally. Normal antegrade vertebral velocities bilaterally. No significant subclavian steno sis bilaterally Critical Notification Critical Value: No <Conclusion> 1. No significant extracranial carotid occlusive disease bilaterally Signed by : Phil Nunez, Electronically Approved : 03/16/2021 16:42:20
== END ==
LOC: ECHO 12:47
PROVIDERS: ATTEND Internal Medicine Cardiovascular Disease
DX: I08.3 Combined rheumatic disorders of mitral, aortic and tricuspid valves (principal); I25.10 Atherosclerotic heart disease of native coronary artery without angina pectoris; R09.89 Other specified symptoms and signs involving the circulatory and respiratory systems
CPT/HCPCS: 93306; 93880

== ENCOUNTER → 2022-01-01 | Outpatient (CLI) | payer MEDICARE ==
[2021-03-08 09:48] VITALS: BP 107/53
[~2022-01-01] MED LIST changes: +CEPH500T PO; +REGADENOSON 0.4 MG/5 ML DISP.SYRIN. IV ONE
--- NOTE | 2022-01-01 16:45 | RAD ---
MR#: [id number] Date of Study: 01/01/2022 Ordering Physician: PHIL ELLIOTT, Referring Physician: BABAR SINGH Tech: DONNY Park, ARRT (R) (N) APPROVED REPORT Test Type: Pharmacological Stress Nurse/Tech: KAVITA ELLIOTT Test Indications: ATHEROSCLEROSIS Cardiac History: HTN, TACHY/ISRAEL, CHEST PAIN, MURMUR- SEE EMR Medications: SEE EMR Medical History: CIRRHOSIS- HEP C- SEE EMR Resting ECG: SR Resting Heart Rate: 59 bpm Resting Blood Pressure: 146/47mmHg Pretest Chest Pain: No chest pain Nurse/Tech Notes MURMUR NOTED, LUNGS CTA, DENIED CHEST PAIN OR SHORTNESS OF BREATH AT THIS TIME. VSS. PT IS ANXIOUS AB OUT THE TEST. Consent: The procedure was explained to the patient in lay terms. Informed consent was witnessed. Conrado eout was entered into [employer]. History and Stress Test performed by JOSELIN [employer]. Details Pharmacologic stress testing was performed using 0.4mg per 5ml of regadenoson given intravenously ove r 7-10 seconds. Stress Symptoms PT HAD A BRIEF EPISODE OF SHORTNESS OF BREATH AND C/O A HEADACHE AT THE END OF TESTING. PT TOLERATED WELL. POST EXERCISE Reason for Termination: Infusion complete Max HR: 76 bpm Max Blood Pressure: 132/43mmHg Blood Pressure response to exercise: Normal blood pressure response during stress. Heart Rate response to exercise: WNL Chest Pain: No. Arrhythmia: . NO SIGNIFICANT CHANGES FROM BASELINE EKG, POSSIBLE ABNORMALITY IN V-LEADS INTERPRETATION Stress EKG Conclusion: No evidence of stress induced ischemic changes. Imaging Protocol IMAGE PROTOCOL: Rest Tc-99m/stress Tc-99m 1 day Rest: Stress: Viability: Radiopharm.Tc99m NbkyseduzFw46b Sestamibi Knln24uRr 33mCi Img Date 01/01/2022 01/01/2022 Inj-Img Ktjl43jqi. 60min. Rest Admin Site:IV - Left AntecubitalAdministrator:JOSELIN Daigle Stress Admin Site: IV - Left AntecubitalAdministrator: JOSELIN Daigle STRESS DATA End Diast. Vol.97.0mlLVEDV index BSA53.0ml End Syst. Vol.24.0mlLVESV index BSA13.0ml Myocardial Yjsh467.0gEject. Qxgmkdjg68.0% Stress Scores Regional WT0.00Summed WT0.00 Regional WM0.00Summed WM1.00 The rest and stress images show normal perfusion, normal contraction and thickening. LV Perfusion 3 Comparison to Prior LV Perfusion Images: No change LV Perf. Quant 17 Seg. SSS2.00 17 Seg. SRS0.00 17 Seg. SDS2.00 Stress Defect Extent (% LAD)0.00Rest Defect Extent (% LAD)0.00Rev. Defect Extent (% LAD)0.00 Stress Defect Extent (% LCX) 0.00Rest Defect Extent (% LCX)0.00Rev. Defect Extent (% LCX)0.00 Stress Defect Extent (% RCA)0.00Rest Defect Extent (% RCA)0.00Rev. Defect Extent (% RCA)0.00 Stress Defect Extent (% GEETA)0.00Rest Defect Extent (% GEETA)0.00Rev. Defect Extent (% GEETA)0.00 Other Information Quality:Good Risk Assessment: Low Risk Conclusion 1. No evidence of EKG changes with stress testing. 2. Normal perfusion at stress/rest. 3. Low risk study. 4. EF > 60%. Signed by : Phil Elliott, Electronically Approved : 01/01/2022 16:44:39
== END ==
LOC: NM 07:36
PROVIDERS: ATTEND Internal Medicine Cardiovascular Disease
DX: I25.10 Atherosclerotic heart disease of native coronary artery without angina pectoris (principal)
CPT/HCPCS: 78452; 93017; A9500; J2785

== ENCOUNTER 2022-01-02 16:28 | Emergency (ER) | payer MEDICARE ==
[~2022-01-02] VITALS: Ht 160 cm; Wt 77.0 kg
[~2022-01-02 16:28] MED LIST changes: -CEPH500T PO; -REGADENOSON 0.4 MG/5 ML DISP.SYRIN. IV ONE
[2022-01-02] MEDS ORDERED: IV NORMAL SALINE 1000ML BAG 1,000 ML IV ONE (17:00)
[2022-01-02 17:07] VITALS: BP 163/66
[2022-01-02 17:11] LABS: BASO % 1 % (0-3); EOS # 0.1 x10^3/uL (0.0-0.7); EOS % 5 % (0-3); HEMATOCRIT 38.7 % (36.0-47.0); HEMOGLOBIN 13.2 g/dL (12.0-15.5); LYMPH # 0.9 x10^3/uL (1.0-4.8); LYMPH % 32 % (24-48); MEAN CORPUSCULAR HEMOGLOBIN 32 pg (25-35); MEAN CORPUSCULAR HGB CONC 34 g/dL (31-37); MEAN CORPUSCULAR VOLUME 94 fL (79-100); MONO # 0.3 x10^3/uL (0.0-1.1); MONO % 9 % (0-9); NEUT # 1.6 x10^3/uL (1.8-7.7); NEUT % 54 % (31-73); PLATELET COUNT 46 x10^3/uL (140-400); RED BLOOD COUNT 4.11 x10^6/uL (3.50-5.40); RED CELL DISTRIBUTION WIDTH 14.3 % (11.5-14.5)
--- NOTE | 2022-01-02 17:17 | PHYS DOC ---
Past Medical History Past Medical History: Diabetes-Type II, GERD, Hypothyroid, Hypotension, Hepatitis, Other Additional Past Medical Histor: Hep C, Cirrhosis, OSTEOPOROSIS Past Surgical History: Other Additional Past Surgical Histo: left ankle, SKIN CANCER ROMOVAL Smoking Status: Never Smoker Alcohol Use: None Drug Use: None General Adult EDM: Chief Complaint: HYPERGLYCEMIA HPI: HPI: Patient is a 76 year old female with a history of diabetes type 2, hypertension, hypothyroidism, presented to the ED today from urgent care. Patient states she went to urgent care to be checked for UTI. She states her urine was noted for glucose, and her blood glucose was in the low 300s, she states she was sent to the ED. She states she follows up with her PCP and is on Metformin for diabetes. She states she did not understand why they had to send her to the ED Review of Systems: Review of Systems: Constitutional: Denies fever or chills. [] Eyes: Denies change in visual acuity. [] HENT: Denies nasal congestion or sore throat. [] Respiratory: Denies cough or shortness of breath. [] Cardiovascular: Denies chest pain or edema. [] GI: Denies abdominal pain, nausea, vomiting, bloody stools or diarrhea. [] : Denies dysuria. [] Musculoskeletal: Denies back pain or joint pain. [] Integument: Denies rash. [] Neurologic: Denies headache, focal weakness or sensory changes. [] Endocrine: Reports hyperglycemia Lymphatic: Denies swollen glands. [] Psychiatric: Denies depression or anxiety. [] Heart Score: C/O Chest Pain: N/A Risk Factors: Risk Factors: DM, Current or recent (<one month) smoker, HTN, HLP, family history of CAD, obesity. Risk Scores: Score 0 - 3: 2.5% MACE over next 6 weeks - Discharge Home Score 4 - 6: 20.3% MACE over next 6 weeks - Admit for Clinical Observation Score 7 - 10: 72.7% MACE over next 6 weeks - Early Invasive Strategies Current Medications: Current Medications Medications (Trade) Dose Ordered Sig/Justine Start Time Stop Time Status Last Admin Dose Admin Sodium Chloride 1,000 ml @ 1,000 mls/hr 1X ONCE 01/02/22 17:00 01/02/22 17:59 01/02/22 17:00 1,000 MLS/HR Allergies: Allergies: Allergies Coded Allergies Type Severity Reaction Last Updated Verified morphine Allergy Intermediate 03/27/20 Yes Uncoded Allergies Type Severity Reaction Last Updated Verified TB NABOR TEST Allergy Unknown 03/08/21 Physical Exam: PE: Constitutional: Well developed, well nourished, no acute distress, non-toxic appearance. [] HENT: Normocephalic, atraumatic, bilateral external ears normal, oropharynx moist, no oral exudates, nose normal. [] Eyes: PERRLA, EOMI, conjunctiva normal, no discharge. [] Neck: Normal range of motion, no tenderness, supple, no stridor. [] Cardiovascular:Heart rate regular rhythm, no murmur [] Lungs & Thorax: Bilateral breath sounds clear to auscultation [] Abdomen: Bowel sounds normal, soft, no tenderness, no masses, no pulsatile masses. [] Skin: Warm, dry, no erythema, no rash. [] Back: No tenderness, no CVA tenderness. [] Extremities: No tenderness, no cyanosis, no clubbing, ROM intact, no edema. [] Neurologic: Alert and oriented X 3, normal motor function, normal sensory function, no focal deficits noted. [] Psychologic: Affect normal, judgement normal, mood normal. [] Current Patient Data: Labs: Laboratory Tests Test 01/02/22 16:39 01/02/22 17:03 Glucose (Fingerstick) 317 mg/dL (70-99) H White Blood Count 3.0 x10^3/uL (4.0-11.0) L Red Blood Count 4.11 x10^6/uL (3.50-5.40) Hemoglobin 13.2 g/dL (12.0-15.5) Hematocrit 38.7 % (36.0-47.0) Mean Corpuscular Volume 94 fL (79-100) Mean Corpuscular Hemoglobin 32 pg (25-35) Mean Corpuscular Hemoglobin Concent 34 g/dL (31-37) Red Cell Distribution Width 14.3 % (11.5-14.5) Platelet Count 46 x10^3/uL (140-400) L Neutrophils (%) (Auto) 54 % (31-73) Lymphocytes (%) (Auto) 32 % (24-48) Monocytes (%) (Auto) 9 % (0-9) Eosinophils (%) (Auto) 5 % (0-3) H Basophils (%) (Auto) 1 % (0-3) Neutrophils # (Auto) 1.6 x10^3/uL (1.8-7.7) L Lymphocytes # (Auto) 0.9 x10^3/uL (1.0-4.8) L Monocytes # (Auto) 0.3 x10^3/uL (0.0-1.1) Eosinophils # (Auto) 0.1 x10^3/uL (0.0-0.7) Basophils # (Auto) 0.0 x10^3/uL (0.0-0.2) Platelet Estimate Pending Laboratory Tests 01/02/22 17:03 EKG: EKG: [] Radiology/Procedures: Radiology/Procedures: [] Course & Med Decision Making: Course & Med Decision Making Pertinent Labs and Imaging studies reviewed. (See chart for details) This is a 76-year-old female patient with history of diabetes type 2 currently on Metformin presenting to the ED today to be evaluated for hyperglycemia. Patient was seen at urgent care, Her UA was noted for glucose and finger stick was in the low 300s, they sent her to the ED. CBC with a WBC of 3.0, has history of low WBC, CMP with glucose of 297, anion gap is normal, CO2 is normal. Urine negative for ketones. Urine positive for UTI. Discharged on cephalexin. She was given a liter of IV fluids in the ED. Instructed to continue taking Metformin and follow-up with her PCP next week. Leonila Disclaimer: Leonila Disclaimer: This electronic medical record was generated, in whole or in part, using a voice recognition dictation system. Departure Departure Impression: Primary Impression: Urinary tract infection Qualified Codes: N39.0 - Urinary tract infection, site not specified Additional Impression: Hyperglycemia Disposition: 01 HOME / SELF CARE / HOMELESS Condition: STABLE Referrals: VENICE CONTRERAS MD (PCP) follow up in the course of this week or next week Patient Instructions: Hyperglycemia, Urinary Tract Infection Additional Instructions: Your blood glucose in the emergency room was 297. Please continue taking your Metformin. You have urinary tract infection. We put you on antibiotics, ensure you complete them. Push fluids. Follow-up with your doctor in the course of this week or next week Scripts Cephalexin (CEPHALEXIN) 500 Mg Tablet 1 TAB PO BID, #14 TAB Prov: TOMI AMEZCUA APRN 01/02/22 TOMI AMEZCUA APRN Jan 02, 2022 17:17
[2022-01-02 17:25] LABS: CALCIUM 9.2 mg/dL (8.5-10.1); CREATININE 0.7 mg/dL (0.6-1.0); GFR 81.6; POTASSIUM 3.9 mmol/L (3.5-5.1)
[2022-01-02 17:26] LABS: BACTERIA,URINE 0 /HPF (0-FEW); RBC,URINE 0 /HPF (0-2); WBC,URINE >40 /HPF (0-4)
[2022-01-02 17:31] LABS: ALBUMIN 3.7 g/dL (3.4-5.0); ALBUMIN/GLOBULIN RATIO 1.1 (1.0-1.7); TOTAL BILIRUBIN 2.5 mg/dL (0.2-1.0)
[2022-01-02] MEDS ORDERED: CEPH500T PO (17:45)
[2022-01-02 20:07] LABS: PLT ESTIMATE DECREASED (ADEQUATE)
== END 2022-01-02 18:19 | disposition home or self-care (01) ==
LOC: ER 16:28
DX: E11.65 Type 2 diabetes mellitus with hyperglycemia (principal); N39.0 Urinary tract infection, site not specified; K21.9 Gastro-esophageal reflux disease without esophagitis; E03.9 Hypothyroidism, unspecified; Z88.5 Allergy status to narcotic agent; I10 Essential (primary) hypertension; Z88.8 Allergy status to other drugs, medicaments and biological substances
CPT/HCPCS: 36415; 80053; 81001; 82962; 85025; 87086; 96360; 99283; J7030

== ENCOUNTER → 2022-01-08 | Outpatient (CLI) | payer MEDICARE ==
[2022-01-02 17:07] VITALS: BP 163/66
[~2022-01-08] MED LIST changes: +CEPH500T PO
--- NOTE | 2022-01-09 07:08 | CARD ---
MR#: [id number] Date of Study: 01/08/2022 Ordering Physician: PHIL NUNEZ, Referring Physician: PHIL NUNEZ, Tech: APPROVED REPORT EXAM Loop Recorder INDICATIONS Arrhythmia CONSCIOUS SEDATION AGENTS 76-year-old woman who has had recurrence of arrhythmia without obvious documentation on objective kev ting presents to the procedure suite for implantation of a loop recorder for delineation of her arrhy thmia symptoms. After appropriate informed consent the left chest was prepped and draped in usual sterile fashion. U nder 1% lidocaine local anesthesia in the left parasternal space a 0.5 inch incision was made. Next, a [employer]onic implantable loop recorder with serial number [id number] was placed in the subcutaneous space without difficulty. The incision was then closed with Steri-Strips. No acute complications. CONCLUSION 1. Successful implantation of a Medtronic loop recorder for evaluation of SVT Signed by : Phil Nunez, Electronically Approved : 01/09/2022 07:07:42
--- NOTE | 2022-01-11 07:57 | CARD ---
MR#: [id number] Date of Study: 01/09/2022 Ordering Physician: PHIL NUNEZ, Referring Physician: PHIL NUNEZ, Tech: APPROVED REPORT <Conclusion> THIS IS A LINQ Signed by : Phil Nunez, Electronically Approved : 01/11/2022 07:57:18
== END | disposition home or self-care (01) ==
LOC: LINQ 11:23
PROVIDERS: ATTEND Internal Medicine Cardiovascular Disease
DX: I49.8 Other specified cardiac arrhythmias (principal); K21.9 Gastro-esophageal reflux disease without esophagitis; M19.90 Unspecified osteoarthritis, unspecified site; E11.9 Type 2 diabetes mellitus without complications; Z85.828 Personal history of other malignant neoplasm of skin; Z79.84 Long term (current) use of oral hypoglycemic drugs; Z79.899 Other long term (current) drug therapy; Z98.890 Other specified postprocedural states; Z88.6 Allergy status to analgesic agent; Z88.8 Allergy status to other drugs, medicaments and biological substances
CPT/HCPCS: 33285; C1764

== ENCOUNTER → 2022-01-14 | Outpatient (CLI) | payer MEDICARE ==
[2022-01-02 17:07] VITALS: BP 163/66
--- NOTE | 2022-01-14 09:07 | CARD ---
MR#: [id number] Date of Study: 01/14/2022 Ordering Physician: PHIL NUNEZ, Referring Physician: PHIL NUNEZ, Tech: Varghese Ghosh [facility] APPROVED REPORT EXAM: Two-dimensional and M-mode echocardiogram with Doppler and color Doppler. Other Information Quality : AverageHR: 54bpm Rhythm : Bradycardia INDICATION SVT 2D DIMENSIONS Left Atrium(2D)4.2 (1.6-4.0cm)IVSd1.2 (0.7-1.1cm) Aortic Root(2D)3.1 (2.0-3.7cm)LVDd5.4 (3.9-5.9cm) LVOT Diameter1.9 (1.8-2.4cm)PWd1.2 (0.7-1.1cm) LA Ngfuyg86 (18-58mL)LVDs3.2 (2.5-4.0cm) FS (%) 41.6 %SV103.3 ml LVEF(%)72.0 (>50%) Aortic Valve AoV Peak Steve.191.3cm/sAoV VTI46.3cm AO Peak GR.14.6mmHgLVOT Peak Steve.104.4cm/s LVOT VTI 33.49cmAO Mean GR.8mmHg MICHELE (VMAX)1.65vf0SAD (VTI)2.13cm2 Mitral Valve MV E Msgdmqht97.1cm/sMV DECEL [id number] MV A Ggkedlly19.7cm/sMV [id number] E/A Ratio0.9MVA (PHT)2.91cm2 TDI E/Lateral E'18.0E/Medial E'16.6 Pulmonary Valve PV Peak Votzsvih21.3cm/sPV Peak Grad.3mmHg Tricuspid Valve TR P. Efcteqfj060ih/sTR Peak Gr.23mmHg Pulmonary Vein S1 Sozjexlm84.3cm/sD2 Rpzfukep27.0cm/s LEFT VENTRICLE The left ventricle is normal size. There is normal left ventricular wall thickness. The left ventricu lar systolic function is normal and the ejection fraction is within normal range. EF 55% There is nor mal LV segmental wall motion. Transmitral Doppler flow pattern is Grade I-abnormal relaxation pattern . No left ventricle thrombus noted on this study. There is no ventricular septal defect visualized. T here is no left ventricular aneurysm. There is no mass noted in the left ventricle. RIGHT VENTRICLE The right ventricle is normal size. There is normal right ventricular wall thickness. The right ventr icular systolic function is normal. ATRIA The left atrium is mildly dilated. The right atrium size is normal. The interatrial septum is intact with no evidence for an atrial septal defect or patent foramen ovale as noted on 2-D or Doppler imagi ng. AORTIC VALVE The aortic valve is heavily calcified. There is restricted leaflet motion. Visually the valve appears moderately stenotic, although by doppler criteria, there is no significant stenosis. Doppler and Col or Flow revealed trace aortic regurgitation. There is no significant aortic valvular stenosis. There is no aortic valvular vegetation. MITRAL VALVE The mitral valve is normal in structure and function. There is no evidence of mitral valve prolapse. There is no mitral valve stenosis. Doppler and Color-flow revealed trace to mild mitral regurgitation . TRICUSPID VALVE The tricuspid valve is normal in structure and function. Doppler and Color Flow revealed trace tricus pid regurgitation. There is no tricuspid valve prolapse or vegetation. There is no tricuspid valve st enosis. PULMONIC VALVE Doppler and Color Flow revealed no pulmonic valvular regurgitation. There is no pulmonic valvular edilberto nosis. GREAT VESSELS The aortic root is normal in size. The ascending aorta is normal in size. The IVC is normal in size a nd collapses >50% with inspiration. PERICARDIAL EFFUSION There is no pleural effusion. There is no evidence of significant pericardial effusion. Critical Notification Critical Value: No <Conclusion> The left ventricular systolic function is normal and the ejection fraction is within normal range. EF 55% There is normal LV segmental wall motion. The aortic valve is heavily calcified. There is restricted leaflet motion. Visually the valve appears moderately stenotic, although by doppler criteria, there is no significant stenosis. Signed by : Phil Nunez, Electronically Approved : 01/14/2022 09:06:57
== END ==
LOC: ECHO 08:00
PROVIDERS: ATTEND Internal Medicine Cardiovascular Disease
DX: I08.0 Rheumatic disorders of both mitral and aortic valves (principal); I47.1 Supraventricular tachycardia
CPT/HCPCS: 93306; C8929